=== PATIENT | male | born 2000 | race Caucasian/White ===

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

== ENCOUNTER 2019-01-06 06:54 | Emergency (ER) | payer OTHER ==
[~2019-01-06] VITALS: Ht 167.6 cm; Wt 59.1 kg
[2019-01-06 07:08] VITALS: BP 120/72
== END 2019-01-06 10:18 | disposition left against medical advice (07) ==
LOC: EMS 06:54
DX: R51 Headache (principal); Z53.21 Procedure and treatment not carried out due to patient leaving prior to being seen by health care provider